=== PATIENT | female | born 2005 | race Caucasian/White ===

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

== ENCOUNTER 2024-11-22 12:20 | Emergency (ER) | payer BC, SELFPAY ==
--- OUTSIDE RECORDS SUMMARY | 2023-11-21 05:30 | XMS_ITS ---
Author Organization [facility] Address [address] [facility] [address] [place], [place] [id number] Care Team Providers Care Passenger Agent Name Role Phone Ulisses Huang Primary Care Provider [phone] Alyssa Joyner Unavailable [phone] Allergies Allergen (clinical drug ingredient) Drug/Non Drug Allergy documented on EMR Reaction Allergy Type Onset Date Status amoxicillin Amoxicillin Unknown Drug Allergy Act allen Results Component Value Reference Range Notes CBC Venipuncture (in house) Reviewed date:11/21/2023 11:12:31 AM Interpretation:Normal Performing Lab: Notes/Report: Normal wbc 5.4 3.5 - 10 lymph 24.7 15 - 50 mid 6.2 2 - 15 gran 69.1 35 - 80 rbc 4.43 3.5 - 5.5 hgb 13.3 11.5 - 16.5 hct 39.1 35 - 55 mcv 88.3 75 - 100 mch 30.0 25 - 35 mchc 33.9 31 - 38 platlet 304 100 - 400 P-Vitamin B12 Reviewed date:11/22/2023 04:20:17 PM Interpretation: Performing Lab: Notes/Report: Test performed by [facility] [address] [place], [place] [address] [place] [address] Gurpreet Valdez MD, Urban Gardening Specialist CLIA: [id number] Vitamin B12 945 736-5884 pg/mL P-Ferritin Reviewed date:11/22/2023 04:20:17 PM Interpretation: Performing Lab: Notes/Report: Test performed by [facility] [address] [place], [place] [address] [place] , [address], [place] [address] Gurpreet Valdez MD, Urban Gardening Specialist CLIA: [id number] Ferritin 48.8 13.0-150.0 ng/mL P-Iron Reviewed date:11/22/2023 04:20:17 PM Interpretation: Performing Lab: Notes/Report: Test performed by [facility] [address] [place] [address] , [address], [place] [address] Gurpreet Valdez MD, Urban Gardening Specialist CLIA: [id number] Iron 146 37-145 ug/dL REASON FOR VISIT med checkup with labs Medications Medication SIG (Take, Route, Frequency, Duration) Notes Start Date End Date Status Ferrous Sulfate 325 (65 Fe) MG 1 tab(s) orally once a day; Duration: 30 day(s) Active Hyoscyamine Sulfate 0.125 MG 1 tablet on the tongue and allow to dissolve as needed Orally every 4 hrs, prn for abdominal cramping 09/29/2022 Not-Taking Vital Signs Blood pressure systolic 112 mm Hg 11/21/19 24 Blood pressure diastolic 76 mm Hg 024 Heart Rate 70 /min 11/21/2023 Height 66.5 in 11/21/2023 Weight 119 lbs 11/21/2023 BMI 18.92 kg/m2 11/21/2023 Encounters Encounter Location Date Provider Diagnosis [facility] [address] [facility] 36 [facility] [address] [place] [address] [place] [id number] 11/21/2023 Alyssa Tobias Iron deficiency E61. 1 and B12 deficiency E53.8 Assessments Encounter Date Diagnosis (ICD Code) Assessment Notes Treatment Notes Treatment Clinical Notes Section Notes 11/21/2023 Iron deficiency (ICD-10 - E61.1) 11/21/2023 B12 deficiency (ICD-10 - E53.8) Plan Of Treatment Next Appt Details Follow Up: via phone to repo rt test results, Reason: Progress Notes * MARLYS ROTHSOPHIAOB:[birth year] (18 yo F)Acc No.[id number]:11/21/2023 Progress Notes Patient: MARLYS DOMINGUEZ Provider: HÉCTOR Swan :2005 A ge:17 Y S ex:Female Date:11/21/2023 Address:[address], [place], [id number] Pcp:Ulisses Huang Subjective: * Chief Complaints: * 1 . Med checkup with labs. * HPI: H ematology: Anemia P elena presents today for a check up and labs. Pt sts that she has no new concerns or complaints. * ROS: D ERMATOLOGY: no R sandra. n o H cecily. G ASTROENTEROLOGY: no N ausea. n o V omiting. n o D iarrhea.? U ROLOGY: no D ifficulty urinating. n o B lood in urine. * Medical History: M edical History Verified. * Hospitalization/Major Diagno stic Procedure: B irth . * Family History: F ather: alive. M other: alive. S iblings: alive. 1 brother(s) - healthy. . * Social History: C URRENT TOBACCO USE S moking Status: P atient does NOT smoke, S econd hand smoke exposure: N o. * Medications: T aking Ferrous Sulfate 325 (65 Fe) MG Tablet Delayed Release 1 tab(s) orally once a day , Not-Taking Hyoscyamine Sulfate 0.125 MG Tablet Disintegrating 1 tablet on the tongue and allow to dissolve as needed Orally every 4 hrs, prn for abdominal cramping , Discontinued Cefdinir 300 MG Capsule 1 tab(s) Orally Two times a day , Medication List reviewed and reconciled with the patient * Allergies: A moxicillin. Objective: * Vitals: W t:119, Temp:98.0, BP:112/76, HR:70, Nurse:SELWYN, Ht: 66.5, BMI:18.92. * Examination: G eneral Examination: General Appearance: N AD. H EENT: u nremarkable.?Oral cavity: n o lesions, mucosa moist and WNL, no erythema. N addie: s upple, no lymphadenopathy. C hest: n ormal shape and expansion. H eart: R SR. L ungs: c lear to auscultation. A bdomen: bowel sounds present, soft and nontender, no organomegaly or masses, no guarding or rigidity. N eurologic Exam: I ntact, gait normal. S kin: n ormal, no rash. P eripheral pulses: n ormal (2+) bilaterally. E xtremities: n o leg edema. Assessment: * Assessment: 1. I katerina deficiency - E61.1 (Primary) 2 . B 12 deficiency - E53.8 ? Plan: * Treatment: Value Reference Range F erritin 48.8 13.0-150.0 - ng/mL * Alyssa Tobias 11/22/2023 4: 20:11 PM > see TE ?LAB: P-Iron (Collection Date & Time - 11/21/2023 11:14 AM)* Value Reference Range I katerina 146 H 37-145 - ug/dL * Alyssa Tobias 11/22/2023 4: 20:11 PM > see TE ?LAB: CBC Venipuncture (in house) (Collection Date & Time - 11/21/2023)? Normal* Value Reference Range w bc 5.4 3.5 - 10 * l ymph 24.7 15 - 50 * m id 6.2 2 - 15 * g ran 69.1 35 - 80 * r bc 4.43 3.5 - 5.5 * h gb 13.3 11.5 - 16.5 * h ct 39.1 35 - 55 * m cv 88.3 75 - 100 * m ch 30.0 25 - 35 * m chc 33.9 31 - 38 * p latlet 304 100 - 400 * Lizabeth Leonard 11/21/2023 10:3 2:06 AM >Alyssa Tobias 11/21/2023 11:12:28 AM > 2.?B12 deficiency?LAB: P-Vitamin B12 (Collection Date & Time - 11/21/2023 11:14 AM)* Value Reference Range V itamin B12 882 858-2451 - pg/mL * Alyssa Tobias 11/22/2023 4: 20:11 PM > see TE * Procedure Codes: 8 5025 CBC WITH AUTO DIFF, 36124 VENIPUNCT, ROUTINE* * Follow Up: v ia phone to report test results * Images: Billing Information: * Visit Code: 33008 Office Visit, Est Pt., Level 4. * Procedure Codes: 89338 CBC WITH AUTO DIFF. 06746 VENIPUNCT, ROUTINE*. * Electronic signature of HÉCTOR Ruiz on 11/22/2024 at 01:10 PM EDT Sign off status: Pending * Provider: HÉCTOR Swan Date: 11/21/2023 Generated for Sunny li/Leticia/Armidaitting on: 11/22/2024 01:10 PM EDT History and Physical Notes * HPI (History of Present Illness) Category Sub-Category Detail Notes Category Not es Hematology Anemia Pt presents toda y for a check up and labs. Pt sts that she has no new concerns or complaints Examination Category Sub-Category Detail Notes Category Not es General Examination HEENT: unremarkable Heart: RSR Lungs: clear to auscultatio n Abdomen: bowel sounds present , soft and nontender, no organomegaly or masses, no guarding or rigidity Extremities: no leg edema General Appearance: NAD Skin: normal, no rash Neurologic Exam: Intact, gait normal Neck: supple, no lymphaden opathy Oral cavity: no lesions, mucosa m oist and WNL, no erythema Peripheral pulses: normal (2+) bilatera lly Chest: normal shape and exp ansion
--- OUTSIDE RECORDS SUMMARY | 2023-11-28 10:45 | XMS_ITS ---
Author Organization [facility] Address [address] [facility] [address] [place] [id number] Care Team Providers Care Base Filler Name Role Phone Reina Ulisses Primary Care Provider Alyssa Tobias Unavailable [phone] Allergies Allergen (clinical drug ingredient) Drug/Non Drug Allergy documented on EMR Reaction Allergy Type Onset Date Status amoxicillin Amoxicillin Unknown Drug Allergy Act allen REASON FOR VISIT headaches Medications Medication SIG (Take, Route, Frequency, Duration) Notes Start Date End Date Status Hyoscyamine Sulfate 0.125 MG 1 tablet on the tongue and allow to dissolve as needed Orally every 4 hrs, prn for abdominal cramping 09/29/2022 Not-Taking Ferrous Sulfate 325 (65 Fe) MG 1 tab(s) orally once a day; Duration: 30 day(s) Active Vital Signs Blood pressure systolic 110 mm Hg 11/28/19 24 Blood pressure diastolic 70 mm Hg 024 Heart Rate 72 /min 11/28/2023 Height 66.5 in 11/28/2023 Weight 117.6 lbs 11/28/2023 BMI 18.69 kg/m2 11/28/2023 Encounters Encounter Location Date Provider Diagnosis [facility] [address] [facility] [address] [place] [id number] 11/28/2023 Alyssa Tobias Pain, eye, right H57 .11 and Acute conjunctivitis of right eye, unspecified acute conjunctivitis type H10.31 Assessments Encounter Date Diagnosis (ICD Code) Assessment Notes Treatment Notes Treatment Clinical Notes Section Notes 11/28/2023 Pain, eye, right (ICD-10 - H57.11) Patient is going to call the eye doctor and go back and see them. She did not experience the pain, headache, red eye, blurry vision, and seeing spots until a few days after the dilation. 11/28/2023 Acute conjunctivitis of right eye, unspecified acute conjunctivitis type (ICD-10 - H10.31) Plan Of Treatment Treatment Notes Assessment Notes Pain, eye, right Patient is going to call the eye doctor and go back and see them. She did not experience the pain, headache, red eye, blurry vision, and seeing spots until a few days after the dilation. Next Appt Details Follow Up: with eye doctor, Reason: Progress Notes * MARLYS ROTHOB:[birth year] (18 yo F)Acc No.[id number]:11/28/2023 Progress Notes Patient: MARLYS DOMINGUEZ Provider: HÉCTOR Swan :2005 A ge:17 Y S ex:Female Date:11/28/2023 Address:[address] , [facility] [id number] Pcp:Ulisses Huang Subjective: * Chief Complaints: * 1 . Headaches. * HPI: N eurology: Pt is here today due to having a headache since 11/22/23. Pt sts she went to the eye doctor 11/21/23 and had her eyes dilated. Pt sts the headache is located behind her right eye. Pt sts that her eye was hard to open this morning, and hurts around it. Her vision is blurry and she is now seeing spots and her eye is getting very red. They eye is not itchy and she has noticed no discharge. * ROS: D ERMATOLOGY: no R sandra. n o H cecily. * Medical History: M edical History Verified. [...] 4 hrs, prn for abdominal cramping , Medication List reviewed and reconciled with the patient * Allergies: A moxicillin. Objective: * Vitals: W t:117.6, Temp:98.3, BP:110/70, HR:72, Nurse:JACQUIE, Ht: 66.5, BMI:18.69. * Examination: G eneral Examination: General Appearance: N AD. H EENT: right conjunctivae erythematous, P ERRLA, TM's normal, translucent, EOMI. O ral cavity: n o lesions, mucosa moist and WNL, no erythema. N addie: s upple, no lymphadenopathy. C hest: n ormal shape and expansion. H eart: R SR. L ungs: c lear to auscultation. ? Assessment: * Assessment: 1. P ain, eye, right - H57.11 (Primary) 2 . A cute conjunctivitis of right eye, unspecified acute conjunctivitis type - H10.31 Plan: * Treatment: * Follow Up: w [facility] eye doctor * Images: Billing Information: * Visit Code: 10540 Office Visit, Est Pt., Level 3. * Procedure Codes: * Electronic signature of HÉCTOR Ruiz on 11/22/2024 at 01:09 PM EDT Sign off status: Pending * Provider: HÉCTOR Swan Date: 11/28/2023 Generated for Sunny li/Leticia/eTfrannysmitting on: 11/22/2024 01:09 PM EDT History and Physical Notes * Examination Category Sub-Category Detail Notes Category Not es General Examination HEENT: right conjun ctivae erythematous, PERRLA, TM's normal, translucent, EOMI Heart: RSR Lungs: clear to auscultatio n General Appearance: NAD Neck: supple, no lymphaden opathy Oral cavity: no lesions, mucosa m oist and WNL, no erythema Chest: normal shape and exp ansion
--- OUTSIDE RECORDS SUMMARY | 2024-01-24 05:20 | XMS_ITS | Continuity of Care Document ---
Author Organization [facility], [facility]. Address [address] [place] [address] Phone Care Team Providers Care Processing Technologist Name Role Phone David Hall MD Unavailable Unavailable Allergies, Adverse Reactions, Alerts Substance Reaction Status Criticality No Known Allergies Active No Inform ation Medications Medication Instructions Dosage Effective Dates (start - stop) Status Comments prednisolone acetate 1 % eye drops,suspension instill 1 drop by ophthalmic route qid OD - Active Procedures Procedure Date OPHTHALMOLOGICAL SERVICE;INTERMEDIATE,ES TABLISHED PATIENT OPHTHALMOLOGICAL SERVICE;INTERMEDIATE,ES TABLISHED PATIENT OPHTHALMOLOGICAL SERVICE;INTERMEDIATE,ES TABLISHED PATIENT VOID TICKET OPHTHALMOLOGICAL SERVICE;INTERMEDIATE,NE W PATIENT VOID TICKET Advance Directives Directive Yes / No Effective Date File Name No Information Encounters Encounter Description Practice Location Reason(s) For Visit Diagnoses Date Provider Providers [facility] on [facility] [address], [place], [address], [phone] David Alorica [facility] Acute Anterior Uveitis OD 2 week f/u (chief complaint) Acute anterior uveitis of right eye Rafael Hernandez. [address] [place], [address], [place]. tel:[phone] Referring Provider: David Foster [address] , [place], [address]. tel:[phone] [facility], [employer], [address], [place], [address], tel:[phone] [facility] [employer] No Information Jan-0 4 Rafael Hernandez. [address] , [place], [address], [place]. tel:[phone] [facility], [employer], [address], [address], [place] tel:[phone] David [employer] Acute Anterior Uveitis OD 2 week f/u (chief complaint) Acute anterior uveitis of right eye 4 Rafael Hernandez. [address] , [place], [address], [place]. tel:[phone] Referring Provider: David Foster, [address] , [place], [address]. tel:[phone] [facility], [employer], [address], [place], [address], [place] tel:[phone] David [employer] 4 day f/u Acute anterior uveitis OD (chief complaint) Acute anterior uveitis of right eye 4 Rafael David. [address] [place], [address], [place]. tel:[phone] Referring Provider: David Foster, [address] , [place], [address]. tel:[phone] [facility] [address], [place], [address], [place] tel:[phone] [facility] [employer] [place] cor ulcer OD (chief complaint) Acute anterior uveitis of right eye 4 Rafael Hernandez. [address] [place], [address], [place]. tel:[phone] Referring Provider: Casey Nicholson, [address], [address] . tel:[phone] [facility], [employer], [address], [place], [address], [place] tel:[phone] [facility] [employer] WIN-Pain/VA spots/Light Sensitivity OD (chief complaint) Bacterial keratitisHypopyon of right eye 4 Bharat Peña. [address], [place], [place], [id number] , [place]. tel:[phone] Referring Provider: Casey Nicholson, [address], [place], [address] . tel:[phone] VOID TICKET [facility] [address], [place], [address], [place] tel:[phone] [facility] No Information Bharat Peña. [address], [place], [place], [id number] , [place]. tel:[phone] Referring Provider: Casey Nicholson, [address], [place], [address] . tel:[phone] Family History Family Member Type Diagnosis Age At Onset No Information Payers Payer name Insurance type Covered alliance party ID Dheeraj edge(s) [facility] I1991 Social History Type Description Quantity Date Captured Comments Alcohol Use Details Unknown Caffeine Use Details Unknown Tobacco Use Status Current non-smoker Smoking Status Never smoker Sex Female Chief Complaint And Reason For Visit From encounter dated '01/24/2024 09:20'. Acute Anterior Uveitis OD 2 week f/u (chief complaint). Description: PT states OD is still blurry but not as bad as it used to be and she states she barely notices it. PT denies pain or irritation.Pred qid OD +pt states they just recently started to burn going in Reason For Referral Reason For Referral No Information History Of Present Illness Encounter Date Complaint History Of Prese nt Illness Acute Anterior Uveit is OD 2 week f/u PT states OD is still blurry but not as bad as it used to be and she states she barely notices it. PT denies pain or irritation.Pred qid OD +pt states they just recently started to burn going in Acute Anterior Uveit is OD 2 week f/u The 18 year old patient presents for evaluation of Acute Anterior Uveitis OD 2 week f/u. Pt states that she was noticing improvement with her VA for about a week but after this she didn't notice much improvement. Pt denies any pain or irritation. Pt denies any tearing or discharge. Pt is using gtts as instructed QID 4 day f/u Acute anterior uveitis OD PT states she thinks OD pain has gotten better but states it is still very blurry. PT has been taking you as directed and has not had any issues with them. PT states she did not use her dilating drop today and her eye is still dilated and is worried that is not normal. NO pain or irritation just blurry. OD Atropine 2x PT states she just got this from the pharmacy yesterday Pred q2h [place] cor ulcer OD Onset Nov 20 s he went for her yearly eye exam got dilated and the day after she got very bad headaches behind her OD on and off for a week then she started seeing spots so she went back and was prescribed a steroid drop and her VA has been getting worse ever since. PT reports a consistent throbbing pain OD no flashes. PT reports DVA and NVA is super blurry OD and describes it as looking through parchment paper with bad light sensitivity. PT thinks when she got her steroid drop her VA would go blurry and then clear but ever since 2-3 days ago its only gotten worse.+Typically CL wearer but has been out of then since Nov 28 WIN-Pain/VA spots/Li ght Sensitivity OD Patient states that she went to OD 11/21/23 for MRx, was dilated and since this she has been having pain in OD. States that a week after it started as a migraine behind OD and after a week she began to see dots in VA w/ on and off pain. States that she went back to OD 11/29/23 and was given [id number] QID. States that she hasnt been taking this as frequently but did so yesterday and this became worse, pain transition from head to eye. States that OD is light sensitive, blurry VA and is in pain when moving OD. Denies any issues w/ OS. +Typically CL wearer but has been out of them since this beganOD:Mateo Poly Dex QIDOS:No gtts Functional Status Date Functional Assessmen t No Information Instructions Date Instruction Additional Infor dayday PRN Related to Acute anterior uveitis of right eye Impression/Plan Related to Acute anterior uveitis of right eye 2-3 weeks obs Related to Acute anterior uveitis of right eye Impression/Plan Related to Acute anterior uveitis of right eye 1-2 weeks obs Related to Acute anterior uveitis of right eye Impression/Plan Related to Acute anterior uveitis of right eye 3-5 days obs Related to Acute anterior uveitis of right eye Impression/Plan Related to Acute anterior uveitis of right eye Impression/Plan Related to Hypop yon of right eye Impression/Plan Related to Bacte rial keratitis Assessments Type Assessment Date assessment Acute anterior uveitis of right eye impression Acute anterior uveitis of right eye: H20.00. HLA-B27+ Patient Care Teams Name Effective Dates (start - stop) Status Members No Information
--- OUTSIDE RECORDS SUMMARY | 2024-04-04 06:15 | XMS_ITS ---
Author Organization [facility] Address [address] [facility] [address] [place] [id number] Care Team Providers Care Spa Supervisor Name Role Phone Ulisses Huang Primary Care Provider [phone] Allergies Allergen (clinical drug ingredient) Drug/Non Drug Allergy documented on EMR Reaction Allergy Type Onset Date Status amoxicillin Amoxicillin Unknown Drug Allergy Act allen REASON FOR VISIT ckup & discuss a diagnosis she was given a few months ago Vital Signs Blood pressure systolic 102 mm Hg 04/04/20 24 Blood pressure diastolic 64 mm Hg 024 Heart Rate 74 /min 04/04/2024 Height 66.5 in 04/04/2024 Weight 119.4 lbs 04/04/2024 BMI 18.98 kg/m2 04/04/2024 Encounters Encounter Location Date Provider Diagnosis Brigette [address] [facility] [address] [place] [id number] 04/04/2024 Ulisses Huang 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 An extensive lab work up has been done and records are reportedly on the way Plan Of Treatment Treatment Notes Assessment Notes HLA B27 positive Discussed monitoring for symptoms. An extensive lab work up has been done and records are reportedly on the way Next Appt Details Follow Up: via phone to repo rt progress, Reason: Progress Notes * MARLYS ROTHOB:[birth year] (18 yo F)Acc No.[id number]:04/04/2024 Progress Notes Patient: MARLYS DOMINGUEZ Provider: Gardenia Huang M.D. :2005 A ge:18 Y S ex:Female Date:04/04/2024 Address:[address], [place], [id number] Subjective: * Chief Complaints: * 1 . Ckup & discuss a diagnosis she was given a few months ago. * HPI: H PI: 18 year old female presents with c/o Patient is here today for?Pt states she had Uveitis and was told by Ophthamology in [facility] she has positive HLA-B27 as well. Pt was advised to see PCP to f/u on possible autoimmune disease. * ROS: D ERMATOLOGY: no R sandra. n o H cecily. G ASTROENTEROLOGY: no N ausea. n o V omiting. U ROLOGY: no D ifficulty urinating. n o B lood in urine. * Medical History: M edical History Verified. * Surgical History: D enies Past Surgical History. * Hospitalization/Major Diagno stic Procedure: D enies Past Hospitalization. * Family History: F ather: alive. M other: alive. S iblings: alive. 1 brother(s) - healthy. . * Social History: C URRENT TOBACCO USE S moking Status: P atient does NOT smoke, S econd hand smoke exposure: N o. * Medications: D iscontinued Ferrous Sulfate 325 (65 Fe) MG Tablet Delayed Release 1 tab(s) orally once a day , Discontinued Hyoscyamine Sulfate 0.125 MG Tablet Disintegrating 1 tablet on the tongue and allow to dissolve as needed Orally every 4 hrs, prn for abdominal cramping , Medication List reviewed and reconciled with the patient * Allergies: A moxicillin. Objective: * Vitals: W t:119.4, Temp:98.1, BP:102/64, HR:74, Nurse:yelena, Ht: 66.5, BMI:18.98. * Examination: G eneral Examination: General Appearance: N AD. Assessment: * Assessment: 1. H LA B27 positive - Z15.89 (Primary) Plan: * Treatment: * Follow Up: v ia phone to report progress * Images: Billing Information: * Visit Code: 72510 Office Visit, Est Pt., Level 3. * Procedure Codes: * Electronic signature of Carole Huang MD on 11/22/2024 at 01:09 PM EDT Sign off status: Pending * Provider: Gardenia Huang M.D. Date: 1 06/05/2023 Generated for Sunny li/Leticia/eTransmitting on: 0 11/22/2024 01:09 PM EDT History and Physical Notes * HPI (History of Present Illness) Category Sub-Category Detail Notes Category Not es HPI Patient is here today for Pt sta kenroy she had Uveitis and was told by Ophthamology in [facility] she has positive HLA-B27 as well. Pt was advised to see PCP to f/u on possible autoimmune disease Examination Category Sub-Category Detail Notes Category Not es General Examination General Appearance: NAD
[2024-11-22] VITALS (8 sets, daily range): BP systolic 107–142; BP diastolic 64–87; PULSE 54–78; RESP 15–16; TEMP 36.9; O2SAT 98–100; BMI 18.8
--- NOTE | 2024-11-22 13:07 | CT_ITS ---
PROCEDURE INFORMATION: Exam: CT Abdomen And Pelvis With Contrast Exam date and time: 11/22/2024 1:53 PM Age: 18 years old Clinical indication: Abdominal pain; Additional info: Lower abd pain TECHNIQUE: Imaging protocol: Computed tomography of the abdomen and pelvis with contrast. Radiation optimization: All CT scans at this facility use at least one of these dose optimization techniques: automated exposure control; mA and/or kV adjustment per patient size (includes targeted exams where dose is matched to clinical indication); or iterative reconstruction. Contrast material: ISOVUE; Contrast volume: 75 ml; Contrast route: IV; COMPARISON: CR XR SCOLIOSIS SURVEY 01/07/2021 4:20 PM FINDINGS: Liver: Normal. No mass. Gallbladder and biliary ducts: Normal. No calcified stones. No ductal dilation. Pancreas: Normal. No ductal dilation. Spleen: Normal. No splenomegaly. Adrenal glands: Normal. No mass. Kidneys and ureters: Normal. No hydronephrosis. Stomach and bowel: Unremarkable. No obstruction. No mucosal thickening. Appendix: No evidence of appendicitis. Intraperitoneal space: Small amount of fluid in the pelvic cul-de-sac. Vasculature: Unremarkable. No abdominal aortic aneurysm. Lymph nodes: Unremarkable. No enlarged lymph nodes. Urinary bladder: Unremarkable as visualized. Reproductive: Involuting right ovarian dominant follicle or small cyst, 2 x 0.9 x 1.4 cm. Left ovary unremarkable. Uterus unremarkable. Bones/joints: Thoracolumbar spine dextrocurvature. Soft tissues: Unremarkable. IMPRESSION: 1. Involuting right ovarian dominant follicle or small cyst, 2 x 0.9 x 1.4 cm. 2. Small amount of fluid in the pelvic cul-de-sac.
--- NOTE | 2024-11-22 13:08 | ED_ITS ---
<Statement entered by Maicol Omalley DO - 11/23/24 17:35> I was consulted by the BROOKS, and we discussed the complexity of problems being addressed. I approved the treatment and management plan for this patient's care in the emergency department, thus performing a substantive portion of the medical decision making. Maicol Omalley DO Discharge Plan Disposition Patient Disposition: Home, Self-Care Prescriptions Prescriptions: No Action khvfhdjhmkqihli-swijlhhyb-HI 2-30-10 mg/5 mL syrup 7.5 ml PO Q4-6H PRN (Reason: cough and congestion) 7 Days Qty: 118 0RF Referrals Follow up/Referrals: Alyssa Tobias PA [Primary Care Provider, Medical] - See instructions Activity Restrictions/Add. Instructions Additional Instructions/Restrictions: Today you were evaluated in the emergency department and diagnosed with a right ovarian cyst. Please follow-up with gynecology. Return to the ED for any worsening of your condition. You may take acetaminophen and ibuprofen [id number]-cwmlrcm for symptomatic relief. Clinical Impressions Clinical Impression: Cyst of right ovary Instructions Patient Instructions: Ovarian Cyst Print Language Print Language: Paraguayan Discharge ED Provider: Maicol Omalley General Adult HPI General Chief complaint: Abdominal Pain Stated complaint: pain, cramping in stomach, nausea Time Seen by Provider: 11/22/24 13:01 Mode of Arrival: Ambulatory Source of Information: Patient Description of Symptoms (Recalled from ER Triage Doc. by RN): patient states she has been having intermittent n/v for 3 weeks with umbilical abdominal pain. she was seen by urgent care in [place] november 10 and they told her that her liver enzymes were elevated. she just got back from [place] yesterday and the past coupl eof days her abdominal pain has gotten worse History of Present Illness HPI narrative: patient is a 18-year-old female with no significant past medical history who presents to the ED for 2 weeks of intermittent abdominal pain and nausea. Patient states she was traveling to [place] approximately 2 weeks ago and was evaluated at urgent care and was advised she needed an ultrasound however was unable to have this performed. Patient states her abdominal pain is lower, around her umbilicus area. She states it is intermittent, at times she is nauseous. No vomiting. Related Data Previous Rx's ?Medication ?Instructions ?Recorded rvdrbdnttvptztd-ihubjvolutegidh-AZ 7.5 ml PO Q4-6H PRN cough and 06/02/19 2 mg-30 mg-10 mg/5 mL oral syrup congestion 7 days #11 8 mL Allergies Allergy/AdvReac Type Severity Reaction Status Date / Time NO KNOWN ALLERGIES Allergy Other Uncoded 11/22/24 13:53 [facility] Disclaimer: The information contained in this section may have been updated after the patient was seen, as this information can be updated by other users. Social History Smoking Status: Never smoker alcohol intake: never substance use type: denies use current occupational status: student Travel in the last 8 weeks?: Inside the [employer] States household members: family housing: house Have you lived/traveled outside US in past 30 days?: No Contact w/someone who lives/traveled outside US past 30 days?: No Exposure to someone with infectious disease in past 14 days?: No Do you have a fever (greater than 100.4 F or 38 C)?: No Have you tested positive for COVID-19?: No Exposed to someone with COVID-19 in past 14 days?: No Do you have a sore throat?: No Do you have a cough?: No Do you have any weakness?: No Do you have any diarrhea?: No Are you experiencing any unusual bleeding?: No Do you have any muscle aches/pain?: No Do you have any abdominal pain?: No Are you experiencing loss of taste or smell?: No Other Medical History Have you received the Pneumonia Vaccine: No ROS Obtained: Yes Systems reviewed as appropriate & no additional complaints except as documented Physical Exam General General appearance: alert and in no apparent distress Head Head exam: atraumatic Eye Eye exam: Present PERRL and EOMI Neck Neck exam: Present full ROM Chest Chest inspection: Present normal inspection Respiratory Respiratory exam: Present normal lung sounds bilaterally Cardiovascular Cardiovascular exam: Present regular rate Abdominal Exam Abdominal exam: Present soft and tenderness (mild lower abd tenderness ) Extremities Exam Extremities exam: Present full ROM Back Exam Back exam: Present full ROM Neurological Exam Neurological exam: Present alert and oriented X3 Psychiatric Psychiatric exam: Present normal affect Skin Skin exam: Present warm and dry Medical Decision Making Medical Records Screening: Per USPSTF and CDC recommendations, given the prevalence of disease in our region, it is our hospital?s policy to screen for HIV and viral Hepatitis for all patients aged 18 and over and those with ongoing risk factors. Yair Inquiry Pt receiving controlled substance: No Vital Signs: 11/22/24 13:00 11/22/24 13:02 11/22/24 13:30 Temperature 98.5 F Temperature Source Oral Pulse Rate 73 65 Pulse Rate [Right Radial] 78 Respiratory Rate 16 Blood Pressure 124/87 107/70 L Blood Pressure [Right Arm] 142/83 H Blood Pressure Mean [Right Arm] 102 Blood Pressure Source Blood Pressure Source [Right Arm] Automatic Cuff Blood Pressure Position Blood Pressure Position [Right Arm] Supine 02 Sat by Pulse Oximetry 100 100 100 Oxygen Delivery Method Room Air 11/22/24 14:00 11/22/24 14:30 11/22/24 15:00 Temperature Temperature Source Pulse Rate 62 59 L 58 L Pulse Rate [Right Radial] Respiratory Rate Blood Pressure 116/74 107/69 L 112/72 Blood Pressure [Right Arm] Blood Pressure Mean [Right Arm] Blood Pressure Source Blood Pressure Source [Right Arm] Blood Pressure Position Blood Pressure Position [Right Arm] 02 Sat by Pulse Oximetry 100 98 98 Oxygen Delivery Method 11/22/24 15:30 11/22/24 15:52 Temperature 98.4 F Temperature Source Oral Pulse Rate 54 L 54 L Pulse Rate [Right Radial] Respiratory Rate 15 Blood Pressure 114/64 114/64 Blood Pressure [Right Arm] Blood Pressure Mean [Right Arm] Blood Pressure Source Automatic Cuff Blood Pressure Source [Right Arm] Blood Pressure Position Supine Blood Pressure Position [Right Arm] 02 Sat by Pulse Oximetry 100 Oxygen Delivery Method Room Air Lab Data Lab Results 11/22/24 12:58: Urine Color Yellow, Urine Appearance Clear, Urine pH 7.0, Ur Specific [place] 1.015, Urine Protein Negative, Urine Glucose (UA) Negative, Urine Ketones Negative, Urine Blood Negative, Urine Nitrate Negative, Urine Bilirubin Negative, Urine Urobilinogen 0.2, Ur Leukocyte Esterase Trace, Urine RBC None, Urine WBC 3-5, Ur Squamous Epith Cells 3-5, Urine Bacteria Trace 11/22/24 13:05: WBC 12.4, RBC 4.80, Hgb 13.8, Hct 42.1, MCV 87.7, MCH 28.8, MCHC 32.8, RDW 13.4, Plt Count 340, MPV 9.9, Neut % (Auto) 76.6, Lymph % (Auto) 14.6, [place] % (Auto) 5.3, Eos % (Auto) 2.9, Baso % (Auto) 0.3, Neut # (Auto) 9.5 H, Lymph # (Auto) 1.8, [place] # (Auto) 0.7, Eos # (Auto) 0.4, Baso # (Auto) 0.0, Sodium 138, Potassium 3.8, Chloride 105, Carbon Dioxide 26, Anion Gap 10.8, BUN 14, Creatinine 0.60, Estimated Creat Clear 130, Estimated GFR 129, Est GFR ( Amer) 156, Glucose 98, Calcium 9.1, Total Bilirubin 0.4, AST 22, ALT 17, Alkaline Phosphatase 64, Total Protein 7.9, Albumin 4.5, Globulin 3.4 H, Albumin/Globulin Ratio 1.3, Lipase 49, Urine HCG, Qual Negative 11/22/24 13:05 11/22/24 13:05 Orders (Tests/Meds): ED MEDICATIONS Discontinued Medications Generic Name Dose Route Start Last Admin Trade Name Freq PRN Reason Stop Dose Admin Iopamidol 75 ml 11/22/24 13:52 11/22/24 13:53 Iopamidol-370 (76%);100ml Bottle IV 11/22/24 13:53 75 ml ONCE ONE Administration Sodium Chloride 10 ml 11/22/24 13:52 11/22/24 13:54 Sodium Chloride 0.9% 10ml Syr (Rad Only) IV 12/22/24 13:51 10 ml NEEDED PRN Administration Maintain IV Site ORDERS Category Date Time Status CT abdomen pelvis w con Stat Cat Scan 11/22/24 13:07 Completed CBC w/Auto Diff [Complete Blood Count Auto Diff] Stat Lab 11/22/24 13:05 Completed CMP [Comprehensive Metabolic Panel] Stat Lab 11/22/24 13:05 Completed HIV Combo Stat Lab 11/22/24 15:21 Ordered Hepatitis C Ab Qual. W/ RFX Stat Lab 11/22/24 15:21 Ordered Lipase Stat Lab 11/22/24 13:05 Completed Urinalysis and Microscopic Stat Lab 11/22/24 12:58 Completed Urine , HCG Qual. Stat Lab 11/22/24 13:05 Completed Medical Decision Narrative: In summary, patient is a 18-year-old female with no significant past medical history who presents to the ED for 2 weeks of intermittent abdominal pain and nausea. Patient states she was traveling to [place] approximately 2 weeks ago and was evaluated at urgent care and was advised she needed an ultrasound however was unable to have this performed. Patient states her abdominal pain is lower, around her umbilicus area. She states it is intermittent, at times she is nauseous. No vomiting. Patient denies any chance of or STI related illness. Denies taking any daily medications, has not had anything for symptomatic relief prior to arrival. Denies any previous abdominal surgeries. Denies fever, chills, abdominal pain, headache, visual changes, chest pain, shortness of breath, vomiting, dysuria, back pain. Upon initial evaluation patient is alert, oriented and cooperative. She is hemodynamically stable. Physical exam remarkable for a soft abdomen, lower abdominal tenderness appears to be mild. No flank pain. Differential diagnosis include UTI, STI, , ectopic , colitis, cholecystitis, cholelithiasis, among others. Discussed with patient we will proceed with labs and CT scan of the abdomen pelvis. She is agreeable to plan of care at this time. CBC unremarkable for any leukocytosis, stable H&H. CMP overall unremarkable. Urinalysis unremarkable for any infectious process. hCG negative. CT scan of the abdomen and pelvis is remarkable for a right ovarian dominant follicle or small cyst. I discussed right ovarian cyst with patient, advised her she can continue to take acetaminophen and ibuprofen [id number]-nscblrs for symptomatic relief. Discussed that she will need to establish care with gynecology and discuss this finding further. We discussed return precautions to the ED and patient verbalized understanding. She remained hemodynamically stable during her ED stay and was ambulatory without difficulty from the ED. Critical Care Critical Care Time Critical Care Time: No
--- OUTSIDE RECORDS SUMMARY | 2024-11-22 13:10 | XMS_ITS | Patient Health Record ---
Author Organization [facility] Address [address] [id number] Care Team Providers Care Health And Safety Coordinator Name Role Phone Ulisses Huang Primary Care Provider Alyssa Tobias Unavailable [phone] Allergies Allergen (clinical drug ingredient) Drug/Non Drug Allergy documented on EMR Reaction Allergy Type Onset Date Status amoxicillin Amoxicillin Unknown Drug Allergy Act allen Reason For Referral No Information Immunizations Vaccine Route Administration Date Status Comme nts COVID 19 Pfizer Unknown 09/01/2020 Administered COVID 19 Pfizer Unknown 09/22/2020 Administered Fluzone Quad (6months&older) IM Intramuscular 12/17/2019 Administered Fluzone Quad (6months&older) IM Intramuscular 01/07/2021 Administered Hep A- Pediatric IM Intramuscular 12/04/2017 Administered Hep A- Pediatric Unknown 06/06/2018 Administered Menactra IM Intramuscular 11/08/2015 Administered MenQuadfi IM Intramuscular 01/07/2021 Administered ppd ID Intradermal 11/01/2022 Administered Tetanus Tdap-Adacel (over 7yrs) IM Intramuscular 11/08/2015 Administered Problems Problem Type SNOMED Code ICD Code Onset Dates Problem Status W/U Status Risk Notes Problem Iron deficiency anemia (47279792) Iron deficiency anemia, unspecified iron deficiency anemia type (D50.9) Active confirmed Vital Signs Heart Rate 74 /min 04/04/2024 Blood pressure diastolic 64 mm Hg 04/04/2024 Height 66.5 in 04/04/2024 Blood pressure systolic 102 mm Hg 04/04/2024 Weight 119.4 lbs 04/04/2024 BMI 18.98 kg/m2 04/04/2024 Encounters Encounter Location Date Provider Diagnosis [facility] [address] [place] [id number] 11/28/2023 Alyssa Tobias Pain, eye, right H57 .11 and Acute conjunctivitis of right eye, unspecified acute conjunctivitis type H10.31 [facility] [address] [place] [id number] 04/04/2024 Ulisses Huang 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 She did not experience the pain, headache, red eye, blurry vision, and seeing spots until a few days after the dilation. 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 An extensive lab work up has been done and records are reportedly on the way Plan Of Treatment No Information Insurance Providers Payer Name Payer Address Payer Phone Subscriber Number Group Number Insured Name Patient Relationship to Insured Coverage Start Date Coverage End Date [employer] [address] [place] [address] [phone] [id number] MARLYS ROTH Self - patient is the insured Medical (General) History Surgical History Surgery Date(Month/Year) Hospitalization History Reason Date(Month/Year)
[2024-11-22 13:13] LABS: Microscopic, Urine URINE MICROSCOPIC (MICROSCOPIC)
[2024-11-22 13:14] LABS: Bilirubin,Urine Negative (Negative); Color,Urine YELLOW (Yellow); Glucose,Urine (UA) Negative (Negative); Ketones,Urine Negative (Negative); Leukocyte Esterase,Urine TRACE (Negative); PH,Urine 7.0 (5.0-8.5); Protein,Urine Negative (Negative); Specific Gravity, Urine 1.015 (1.005-1.030); Urobilinogen,Urine 0.2 EU/dl (0.2)
[2024-11-22 13:14] LABS: Hematocrit 42.1 % (37.0-47.0); Hemoglobin 13.8 g/dL (12.2-16.2); Immature Granulocytes % 0.3 %; Mean Corpuscular HGB Conc 32.8 g/dL (31.8-35.4); Mean Corpuscular Hemoglobin 28.8 pg (27.0-31.2); Mean Corpuscular Volume 87.7 fl (81-99); Nucleated Red Blood Cells % 0 %; Platelet Count 340 K/mm3 (142-424); Red Blood Count 4.80 M/mm3 (4.20-5.40); Red Cell Distribution Width-SD 43.6 fL; White Blood Count 12.4 K/mm3 (4.5-13.0)
[2024-11-22 13:15] LABS: Urine Pregnancy, HCG Qual. Negative (Negative)
[2024-11-22 13:19] LABS: Albumin Level 4.5 g/dl (3.5-5.0); Chloride 105 mmol/L (98-107); Potassium 3.8 mmoL/L (3.5-5.1); Sodium 138 mmol/L (136-145)
[2024-11-22 13:20] LABS: Bacteria,Urine Trace /lpf
[2024-11-22 13:21] LABS: Alanine Aminotransferase 17 U/L (12-78); Anion Gap 10.8 mEq/L (5-15); Aspartate Amino Transferase 22 U/L (14-36); Bilirubin,Total 0.4 mg/dl (0.2-1.3); Blood Urea Nitrogen 14 mg/dl (7-17); Carbon Dioxide 26 mmol/L (22.0-30.0); Creatinine Clearance Estimated 130 mL/min (50-200); Creatinine,Serum 0.60 mg/dl (0.52-1.04); Estimated Glomerular Filt Rate 129 ml/min (>60); GFR (African American) 156 ML/MIN (>60)
[2024-11-22 13:22] LABS: Albumin/Globulin Ratio 1.3 (1.1-1.8); Alkaline Phosphatase 64 U/L (38-126); Calcium 9.1 mg/dl (8.4-10.2); Globulin 3.4 g/dL (1.3-3.2); Glucose 98 mg/dl (74-100); Lipase 49 U/L (23-300); Total Protein,Serum 7.9 g/dl (6.3-8.2)
[2024-11-22] MEDS: IOPAMIDOL-370 (76%);100ML BOTTLE 75 ML IV (13:53)
[2024-11-22] MEDS: SODIUM CHLORIDE 0.9% 10ML SYR (RAD ONLY) 10 ML IV (13:54)
--- NOTE | 2024-11-22 15:08 | PC.NURSE ---
I called radiology to inquire about pts scan results. They are going to check with [facility]
[2024-11-22 17:21] LABS: Hepatitis C Ab Qual. W/ RFX NEGATIVE (Negative)
== END 2024-11-22 15:56 | disposition home or self-care (01) ==
PROVIDERS: Nurse Practitioner; Emergency Provider Student in an Organized Health Care Education/Training Program; PCP Physician Assistant
DX: R10.30 Lower abdominal pain, unspecified (principal); N83.201 Unspecified ovarian cyst, right side; R11.0 Nausea
CPT/HCPCS: 74177; 80053; 81001; 81025; 83690; 85025; 86803; 87389; 99284; Q9967